=== PATIENT | female | born 1950 | race Caucasian/White ===

== ENCOUNTER 2017-12-23 08:05 | Day surgery (SDC) | payer MEDICARE, OTHER ==
[~2017-12-23 08:05] MED LIST: Cefuroxime 10 MG/ML SYRINGE EYERT SCH; Lidocaine 1% PF 2 ML SDV INJECT SCH; Pilocarpine 4% Ophth Soln 15 ML Bot EYERT SCH
[2017-12-23] MEDS: Polymyxin B/Trimethoprim 10 ML Bottle EYERT SCH ×3 (09:42→11:29)
[2017-12-23] MEDS: Brimonidine 0.2% Ophth Soln 5 ML Bottle EYERT SCH ×3 (09:48→11:29)
[2017-12-23] MEDS: Phenylephrine 2.5% Ophth Soln 2 ML Bot EYERT SCH ×5 (09:58→11:16)
[2017-12-23] MEDS: Tropicamide 1% Ophth Soln 15 ML Bottle EYERT SCH ×4 (10:03→10:45)
[2017-12-23] MEDS: Tetracaine HCl/PF 0.5% 4 ML Bottle EYERT SCH ×2 (10:50→11:23)
--- NOTE | 2017-12-23 11:15 | PCM.PREANE ---
Preanesthetic Assessment - Anesthesia/Transfusion/Family Hx Anesthesia History: Prior Anesthesia Without Reaction Family History of Anesthesia Reaction: No - Review of Systems General: No Symptoms Pulmonary: No Symptoms Cardiovascular: No Symptoms, Other (Pacemaker, Hypertension.) Gastrointestinal: No Symptoms Neurological: No Symptoms Other: Reports: Diabetes, Thyroid Problems - Physical Assessment NPO Status Date: 12/22/17 NPO Status Time: 20:00 O2 Sat by Pulse Oximetry: 94 Respiratory Rate: 16 Vital Signs: Last Vital Signs Temp 36.3 C 12/23/17 09:38 Pulse 70 12/23/17 09:38 Resp 16 12/23/17 09:38 BP 140/68 12/23/17 09:38 Pulse Ox 94 L 12/23/17 09:38 Height: 1.57 m Weight: 81.647 kg ASA Class: 3 Mental Status: Alert & Oriented x3 Airway Class: Mallampati = 2 Dentition: Reports: Caries Thyro-Mental Finger Breadths: 3 Mouth Opening Finger Breadths: 3 ROM/Head Extension: Full Lungs: Clear to Auscultation, Normal Respiratory Effort, Decreased Breath Sounds Cardiovascular: Regular Rate, Regular Rhythm - Allergies Allergies/Adverse Reactions: Allergies Allergy/AdvReac Type Severity Reaction Status Date / Time codeine Allergy Other Verified 01/15/17 07:15 - Acknowledgements Anesthesia Type Planned: MAC Pt an Appropriate Candidate for the Planned Anesthesia: Yes Alternatives and Risks of Anesthesia Discussed w Pt/Guardian: Yes Pt/Guardian Understands and Agrees with Anesthesia Plan: Yes PreAnesthesia Questionnaire - HOME MEDS Home Medications: Home Meds Aspirin 81 mg PO DAILY 12/22/17 [History] Canagliflozin/Metformin HCl [Invokamet 150-1,000 mg Tablet] 1 tab PO BID [History] Carvedilol [Coreg] 3.125 mg PO DAILY 12/22/17 [History] Cholecalciferol (Vitamin D3) [Vitamin D3] 1,000 mg PO DAILY 12/22/17 [History] Hydroxyurea 500 mg PO BID 12/22/17 [History] Levothyroxine 25 mcg PO DAILY 12/22/17 [History] atorvaSTATin [Lipitor] 40 mg PO DAILY 12/22/17 [History] - CURRENT (IN HOUSE) MEDS Current Meds: Current Medications Brimonidine Tartrate (Alphagan 0.2% Oph Soln) 0 ml EYERT ASDIRECTED DIANA Stop: 12/23/17 18:00 Last Admin: 12/23/17 10:35 Dose: 1 drop Cefuroxime Sodium (Zinacef) 0 mg EYERT ASDIRECTED DIANA Stop: 12/23/17 18:00 Lidocaine HCl (Xylocaine-Mpf 1%) 0 ml INJECT ASDIRECTED DIANA Stop: 12/23/17 18:00 Phenylephrine HCl (Bruce-Synephrine 2.5% Ophth Soln) 0 ml EYERT ASDIRECTED DIANA Stop: 12/23/17 18:00 Last Admin: 12/23/17 10:41 Dose: 1 drop Pilocarpine HCl (Pilocar 4% Ophth Soln) 0 ml EYERT ASDIRECTED [facility] Stop: 12/23/17 18:00 Polymyxin/Trimethoprim Sulfate (Polytrim Ophth Soln) 0 ml EYERT ASDIRECTED [facility] Stop: 12/23/17 18:00 Last Admin: 12/23/17 10:29 Dose: 1 drop Tetracaine HCl (Tetracaine 0.5% Steri-Unit Ariadna) 0 ml EYERT ASDIRECTED [facility] Stop: 12/23/17 18:00 Last Admin: 12/23/17 10:50 Dose: 1 drop Tropicamide (Mydriacyl 1% Ophth Soln) 0 ml EYERT ASDIRECTED [facility] Stop: 12/23/17 18:00 Last Admin: 12/23/17 10:45 Dose: 1 drop
--- NOTE | 2017-12-23 11:31 | PCM48HPAN ---
Post Anesthesia Note - EVALUATION WITHIN 48HRS OF ANESTHETIC Vital Signs in Normal Range: Yes Patient Participated in Evaluation: Yes Respiratory Function Stable: Yes Airway Patent: Yes Cardiovascular Function Stable: Yes Hydration Status Stable: Yes Pain Control Satisfactory: Yes Nausea and Vomiting Control Satisfactory: Yes Mental Status Recovered: Yes Pulse Rate: 70 SaO2: 100 Resp Rate: 16 Temperature: 36.6 C Blood Pressure: 125/76
[2017-12-23 11:43] VITALS: BP 132/71
== END 2017-12-23 11:41 | disposition home or self-care (01) ==
LOC: JD.SDS 08:05
PROVIDERS: ATTEND Ophthalmology
DX: E11.36 Type 2 diabetes mellitus with diabetic cataract (principal); H25.813 Combined forms of age-related cataract, bilateral; H40.003 Preglaucoma, unspecified, bilateral; H16.103 Unspecified superficial keratitis, bilateral; H16.223 Keratoconjunctivitis sicca, not specified as Sjogren's, bilateral; I10 Essential (primary) hypertension; I25.10 Atherosclerotic heart disease of native coronary artery without angina pectoris; E70.9 Disorder of aromatic amino-acid metabolism, unspecified; E78.00 Pure hypercholesterolemia, unspecified; F17.200 Nicotine dependence, unspecified, uncomplicated; Z79.82 Long term (current) use of aspirin; Z79.84 Long term (current) use of oral hypoglycemic drugs; Z79.899 Other long term (current) drug therapy; Z98.890 Other specified postprocedural states
CPT/HCPCS: 66984; C1780; J0697; A9270-GY; J2001

== ENCOUNTER 2018-01-25 06:58 | Day surgery (SDC) | payer MEDICARE ==
[2018-01-25] MEDS: Polymyxin B/Trimethoprim 10 ML Bottle EYELF SCH ×4 (07:10→08:32)
[2018-01-25] MEDS: Brimonidine 0.2% Ophth Soln 5 ML Bottle EYELF SCH ×4 (07:13→08:32)
[2018-01-25] MEDS: Phenylephrine 2.5% Ophth Soln 2 ML Bot EYELF SCH ×6 (07:17→08:07)
[2018-01-25] MEDS: Tropicamide 1% Ophth Soln 15 ML Bottle EYELF SCH ×4 (07:21→07:52)
--- NOTE | 2018-01-25 07:25 | PCM.PREANE ---
Preanesthetic Assessment - Anesthesia/Transfusion/Family Hx Anesthesia History: Prior Anesthesia Without Reaction - Review of Systems General: No Symptoms Pulmonary: No Symptoms Cardiovascular: No Symptoms Gastrointestinal: No Symptoms Neurological: No Symptoms - Physical Assessment NPO Status Date: 01/24/18 NPO Status Time: 20:00 ASA Class: 3 Airway Class: Mallampati = 3 Dentition: Reports: Missing Tooth/Teeth Thyro-Mental Finger Breadths: 3 Mouth Opening Finger Breadths: 3 ROM/Head Extension: Full Lungs: Clear to Auscultation - Allergies Allergies/Adverse Reactions: Allergies Allergy/AdvReac Type Severity Reaction Status Date / Time codeine Allergy Other Verified 01/24/18 13:15 - Anesthesia Plan Beta Kit: Carvedilol Med Last Dose Date: 01/25/18 Med Last Dose Time: 06:00 - Acknowledgements Anesthesia Type Planned: MAC Pt an Appropriate Candidate for the Planned Anesthesia: Yes Alternatives and Risks of Anesthesia Discussed w Pt/Guardian: Yes Pt/Guardian Understands and Agrees with Anesthesia Plan: Yes PreAnesthesia Questionnaire Cardiovascular History: Reports: Automatic Implantable Cardioverter Defibrillators, High Cholesterol, Hypertension Other Cardiovascular History: Hx of CHF Respiratory History: Reports: Bronchitis, Recurrent (takes inhaler) Endocrine/Metabolic History: Reports: Diabetes, Type II, Hypothyroidism - Past Surgical History HEENT Surgical History: Reports: Cataract Surgery, Eye Surgery GI Surgical History: Reports: Cholecystectomy - HOME MEDS Home Medications: Home Meds Aspirin 81 mg PO DAILY 12/22/17 [History] Canagliflozin/Metformin HCl [Invokamet 150-1,000 mg Tablet] 1 tab PO BID [History] Carvedilol [Coreg] 3.125 mg PO DAILY 12/22/17 [History] Cholecalciferol (Vitamin D3) [Vitamin D3] 1,000 mg PO DAILY 12/22/17 [History] Hydroxyurea 500 mg PO BID 12/22/17 [History] Levothyroxine 25 mcg PO DAILY 12/22/17 [History] atorvaSTATin [Lipitor] 40 mg PO DAILY 12/22/17 [History] - CURRENT (IN HOUSE) MEDS Current Meds: Current Medications Brimonidine Tartrate (Alphagan 0.2% Ophth Soln) 0 ml EYELF ASDIRECTED DIANA Stop: 01/25/18 18:00 Last Admin: 01/25/18 07:13 Dose: 1 drop Cefuroxime Sodium (Zinacef) 0 mg EYELF ASDIRECTED DIANA Stop: 01/25/18 18:00 Lidocaine HCl (Xylocaine-Mpf 1%) 0 ml INJECT ASDIRECTED DIANA Stop: 01/25/18 18:00 Phenylephrine HCl (Bruce-Synephrine 2.5% Ophth Soln) 0 ml EYELF ASDIRECTED DIANA Stop: 01/25/18 18:00 Last Admin: 01/25/18 07:17 Dose: 1 drop Pilocarpine HCl (Pilocar 4% Ophth Soln) 0 ml EYELF ASDIRECTED DIANA Stop: 01/25/18 18:00 Polymyxin/Trimethoprim Sulfate (Polytrim Ophth Soln) 0 ml EYELF ASDIRECTED DIANA Stop: 01/25/18 18:00 Last Admin: 01/25/18 07:10 Dose: 1 drop Tetracaine HCl (Tetracaine 0.5% Steri-Unit Ariadna) 0 ml EYELF ASDIRECTED DIANA Stop: 01/25/18 18:00 Tropicamide (Mydriacyl 1% Ophth Soln) 0 ml EYELF ASDIRECTED DIANA Stop: 01/25/18 18:00
[2018-01-25] MEDS: Lidocaine 1% PF 2 ML SDV INJECT SCH ×2 (07:53→08:20)
[2018-01-25] MEDS: Cefuroxime 10 MG/ML SYRINGE EYELF SCH ×2 (07:53→08:32)
[2018-01-25] MEDS: Tetracaine HCl/PF 0.5% 4 ML Bottle EYELF SCH ×3 (07:53→08:20)
[2018-01-25] MEDS: Pilocarpine 4% Ophth Soln 15 ML Bot EYELF SCH ×2 (07:54→08:32)
[2018-01-25 08:49] VITALS: BP 119/67
--- NOTE | 2018-01-25 09:36 | PCM48HPAN ---
Post Anesthesia Note - EVALUATION WITHIN 48HRS OF ANESTHETIC Vital Signs in Normal Range: Yes Patient Participated in Evaluation: Yes Respiratory Function Stable: Yes Airway Patent: Yes Cardiovascular Function Stable: Yes Hydration Status Stable: Yes Pain Control Satisfactory: Yes Nausea and Vomiting Control Satisfactory: Yes Mental Status Recovered: Yes Pulse Rate: 70 SaO2: 96 Resp Rate: 20 Temperature: 97.4 F Blood Pressure: 119/67
== END 2018-01-25 08:45 | disposition home or self-care (01) ==
LOC: JD.SDS 06:58
PROVIDERS: ATTEND Ophthalmology
DX: H25.812 Combined forms of age-related cataract, left eye (principal); E11.36 Type 2 diabetes mellitus with diabetic cataract; H16.103 Unspecified superficial keratitis, bilateral; H16.223 Keratoconjunctivitis sicca, not specified as Sjogren's, bilateral; E78.00 Pure hypercholesterolemia, unspecified; I11.0 Hypertensive heart disease with heart failure; I50.9 Heart failure, unspecified; E03.9 Hypothyroidism, unspecified; Z88.5 Allergy status to narcotic agent; Z79.84 Long term (current) use of oral hypoglycemic drugs; Z79.899 Other long term (current) drug therapy; Z98.41 Cataract extraction status, right eye; Z96.1 Presence of intraocular lens; Z95.810 Presence of automatic (implantable) cardiac defibrillator
CPT/HCPCS: 66984; C1780; J0697; A9270-GY; J2001

== ENCOUNTER 2019-02-22 18:22 | Emergency (ER) | payer MEDICARE ==
--- NOTE | 2019-02-22 18:36 | EDM.PDOC ---
ED HPI GENERAL MEDICAL PROBLEM - General Chief Complaint: General Stated Complaint: [facility] Time Seen by Provider: 02/22/19 18:31 Source of Information: Reports: Patient, RN Notes Reviewed - History of Present Illness INITIAL COMMENTS - FREE TEXT/NARRATIVE: 69 year old female lost her balance and fell going down some steps a short time ago. There was no LOC. She did hit her head and suffered bruise injury to R knee, R shoulder. She has been brought in by EMS, this was called as a trauma alert based on [facility]. of injury. She has mild Motta, no neck or back pain. Mild L upper chest pain. No abd pain, nausea or vomiting. No difficulty breathing at time of exam. Upper Chest Pain Score (Numeric/FACES): 5 - Related Data Allergies Allergy/AdvReac Type Severity Reaction Status Date / Time codeine Allergy Other Verified 01/24/18 13:15 Home Meds: Home Meds Aspirin 325 mg PO DAILY 12/22/17 [History] Canagliflozin/Metformin HCl [Invokamet 150-1,000 mg Tablet] 1 tab PO BID [History] Carvedilol [Coreg] 3.125 mg PO DAILY 12/22/17 [History] Cholecalciferol (Vitamin D3) [Vitamin D3] 1,000 mg PO DAILY 12/22/17 [History] Hydroxyurea 500 mg PO BID 12/22/17 [History] Levothyroxine 25 mcg PO DAILY 12/22/17 [History] atorvaSTATin [Lipitor] 40 mg PO DAILY 12/22/17 [History] Past Medical History Cardiovascular History: Reports: Automatic Implantable Cardioverter Defibrillators, High Cholesterol, Hypertension Other Cardiovascular History: Hx of CHF Respiratory History: Reports: Bronchitis, Recurrent (takes inhaler) Endocrine/Metabolic History: Reports: Diabetes, Type II, Hypothyroidism - Past Surgical History HEENT Surgical History: Reports: Cataract Surgery, Eye Surgery GI Surgical History: Reports: Cholecystectomy ED ROS GENERAL - Review of Systems Review Of Systems: See Below Constitutional: Denies: Diaphoresis HEENT: Denies: Ear Discharge, Ear Pain, Nose Pain, Vertigo, Vision Change Respiratory: Denies: Shortness of Breath, Pleuritic Chest Pain Cardiovascular: Reports: Chest Pain (mild) GI/Abdominal: Denies: Abdominal Pain, Nausea, Vomiting Musculoskeletal: Reports: Shoulder Pain, Joint Pain (mild R knee discomfort). Denies: Neck Pain, Arm Pain, Back Pain, Leg Pain Skin: Reports: Bruising (mild bruising R knee) Neurological: Denies: Numbness, Tingling, Trouble Speaking, Weakness ED EXAM, GENERAL - Physical Exam Exam: See Below General Appearance: Alert, No Apparent Distress Eye Exam: Bilateral Eye: PERRL Ears: Normal External Exam Nose: Normal Inspection Throat/Mouth: Normal Inspection, Normal Oropharynx Head: Other (very mild swelling R forehead, no visible bruising of the head or face) Neck: Supple, Non-Tender Respiratory/Chest: No Respiratory Distress, Lungs Clear, Normal Breath Sounds, Other (very mild tenderness R upper chest) Cardiovascular: Regular Rate, Rhythm GI/Abdominal: Soft, Non-Tender. No: Guarding Extremities: Other (pelvis and hips nontender, there is mild brusing of the R ant knee, no joint or patellar tenderness, no effusion, good ROM with minimal discomfort, R shoulder nontender, good arm ROM without difficulty). No: Leg Pain Neurological: Alert, Oriented, No Motor/Sensory Deficits Skin Exam: Warm, Dry Course - Vital Signs Text/Narrative:: DT shows as calcified lesion frontal area of brain. This is most likely due to calcified meningioma. Radiologist does recommend follow-up MRI with contrast. Radiology staff has been contacted and they are willing to put her on the schedule for 6:45 tomorrow morning. Her GFR is low at 55 so we will give her 1 L of IV fluid now. Will have her hold her metformin for 4 days. She is resting fairly comfortably,she does have mild/moderate headache. We'll give Tylenol by mouth at this time. Discharge instructions as documented. Last Recorded V/S: Last Vital Signs Temp 97.9 F 02/22/19 18:40 Pulse 75 02/22/19 18:40 Resp 20 02/22/19 18:40 BP 132/54 L 02/22/19 18:40 Pulse Ox 94 L 02/22/19 18:40 - Orders/Labs/Meds Labs: Laboratory Tests 02/22/19 02/22/19 Range/Units 19:13 19:13 WBC 6.17 (3.98-10.04) K/mm3 RBC 3.30 L (3.98-5.22) M/mm3 Hgb 13.3 D (11.2-15.7) gm/dl Hct 39.4 (34.1-44.9) % MCV 119.4 H (79.4-94.8) fl MCH 40.3 H (25.6-32.2) pg MCHC 33.8 (32.2-35.5) g/dl RDW Std Deviation 55.3 H (36.4-46.3) fL Plt Count 110 L (182-369) K/mm3 MPV 10.3 (9.4-12.3) fl Neut % (Auto) 54.0 (34.0-71.1) % Lymph % (Auto) 39.1 (19.3-51.7) % Weber % (Auto) 5.0 (4.7-12.5) % Eos % (Auto) 1.5 (0.7-5.8) Baso % (Auto) 0.2 (0.1-1.2) % Neut # (Auto) 3.34 (1.56-6.13) K/mm3 Lymph # (Auto) 2.41 (1.18-3.74) K/mm3 Weber # (Auto) 0.31 (0.24-0.36) K/mm3 Eos # (Auto) 0.09 (0.04-0.36) K/mm3 Baso # (Auto) 0.01 (0.01-0.08) K/mm3 Manual Slide Review Abnormal smear Sodium 138 (136-145) mEq/L Potassium 4.4 (3.5-5.1) mEq/L Chloride 105 (98-107) mEq/L Carbon Dioxide 25 (21-32) mEq/L Anion Gap 12.4 (5-15) BUN 22 H (7-18) mg/dL Creatinine 1.0 (0.55-1.02) mg/dL Est Cr Clr Drug Dosing 42.59 mL/min Estimated GFR (MDRD) 55 (>60) mL/min BUN/Creatinine Ratio 22.0 H (14-18) Glucose 143 H (80-115) mg/dL Calcium 9.4 (8.5-10.1) mg/dL Total Bilirubin 0.6 (0.2-1.0) mg/dL AST 13 L (15-37) U/L ALT 22 (14-59) U/L Alkaline Phosphatase 91 (46-116) U/L Total Protein 7.2 (6.4-8.2) g/dl Albumin 3.8 (3.4-5.0) g/dl Globulin 3.4 gm/dL Albumin/Globulin Ratio 1.1 (1-2) Ethyl Alcohol 0.00 (0.00) gm% Meds: Medications Discontinued Medications Generic Name Dose Route Start Last Admin Trade Name Georges PRN Reason Stop Dose Admin Acetaminophen 975 mg 02/22/19 20:47 02/22/19 20:55 Tylenol PO 02/22/19 20:48 975 mg NOW ONE Administration Sodium Chloride 1,000 mls @ 999 mls/hr 02/22/19 20:30 02/22/19 20:54 Normal Saline IV 999 mls/hr ONETIME DIANA Administration - Re-Assessments/Exams Free Text/Narrative Re-Assessment/Exam: 02/23/19 16:[address] of head showed a 1.2 cm density L frontal region. most likely due to calcified meningioma. MRI with contrast recomended. Our nurse manager employee benefits has called assistant warehouse manager to check on how to get this done as the MRI schedule was know to be quite full. A staff person will come in early and plan to do this Thurs. AM 6:45. Her GFR is noted to be mildly low at 55 so will give 1 liter of NS prior to discharge and have her hold her metformin for about 4 days. Discharge instr. as documented. Departure - Departure Time of Disposition: 20:23 Disposition: Home, Self-Care 01 Condition: Fair Clinical Impression: Fall, Forehead contusion, Chest wall contusion, Intracerebral mass - Discharge Information Instructions: Contusion, [id number] Referrals: Sofia Pacheco PA-C [Primary Care Provider] - Forms: ED Department Discharge Additional Instructions: MRI of your head tomorrow morning. Come to the main hospital entrance 6:45 tomorrow morning to get registered and that will be done as soon as you are registered for that. Drink plenty of water to maintain hydration. Do not take your metformin for 4 days. Follow-up with your regular medical provider Wednesday or early next week for MRI results. Tylenol every 6-8 hours if needed for discomfort. Ice packs and elevation right knee and any other areas of bruising as needed. Return to ED as needed if symptoms worsening in any way.
[2019-02-22 18:40] VITALS: BP 132/54; PULSE 75
--- NOTE | 2019-02-22 19:32 | CT ---
Head CT Technique: Multiple axial sections through the brain were obtained. Intravenous contrast was not utilized. Findings: Soft tissue swelling is seen within the frontal scalp. There is a high density lesion which appears to be extra-axial in location within the posterior left frontal region. This measures approximately 1.2 cm in size. Some of the Hounsfield unit measurements of this finding suggests blood but other units are due to calcification. This finding most likely represents a a calcifying meningioma rather than actual hemorrhage. Basal ganglia calcification is seen. Ventricles along with basal cisterns and sulci over the convexities are within normal limits. No other abnormal parenchymal densities are seen. No mass effect is seen. No midline shift is seen. Bone window settings were reviewed which shows no acute calvarial abnormality. Soft tissue density is noted within the inferior right mastoid sinus compatible with mucosal thickening. Under aerated left mastoid sinus is noted which is a normal variant. There is a defect within the medial orbital wall compatible with old medial orbital blowout fracture. No acute calvarial abnormality is appreciated. Impression: 1. 1.2 cm high density finding within the posterior left frontal region. This finding is most likely due to calcifying meningioma. Recommend follow-up MRI with contrast in the a.m. to confirm. 2. Soft tissue swelling within the right frontal scalp. 3. Basal ganglia calcifications which are incidental. 4. No acute intracranial abnormality is suspected at this time. 5. Mastoid findings which are felt to be chronic and incidental. Diagnostic code #3
[2019-02-22] MEDS ORDERED: Sodium Chloride 0.9% 1,000 ML IV SCH (20:30)
[2019-02-22] MEDS ORDERED: Acetaminophen 325 MG Tab PO ONE (20:47)
--- NOTE | 2019-02-23 09:38 | CR ---
Chest: AP view of the chest was obtained. Comparison: Prior chest x-ray of 02/01/18. Heart size and mediastinum are normal. AICD is present. Lungs are clear with no acute parenchymal change. Bony structures are grossly intact. Impression: 1. Nothing acute is appreciated on AP chest x-ray. Diagnostic code #2
== END 2019-02-22 22:03 | disposition home or self-care (01) ==
LOC: JD.ED 18:22
DX: S00.83XA Contusion of other part of head, initial encounter (principal); S20.211A Contusion of right front wall of thorax, initial encounter; G93.9 Disorder of brain, unspecified; I50.9 Heart failure, unspecified; E03.9 Hypothyroidism, unspecified; E11.9 Type 2 diabetes mellitus without complications; Z88.5 Allergy status to narcotic agent; Z79.82 Long term (current) use of aspirin; Z79.899 Other long term (current) drug therapy; Z90.49 Acquired absence of other specified parts of digestive tract; W10.8XXA Fall (on) (from) other stairs and steps, initial encounter; W22.8XXA Striking against or struck by other objects, initial encounter
CPT/HCPCS: 36415; 70450; 71045; 80053; 85025; 96360; 99284; A9270; G0480; J7040